=== PATIENT | female | born 1950 | race Caucasian/White ===

== ENCOUNTER → 2016-03-09 | Outpatient (CLI) | payer BC ==
[~2016-03-09] MED LIST: AML2.5T PO; DOCU-34 PO; ESCI10TA PO; HYDR-3754 PO; IBUP-15 PO; IBUP-788 PO; IRBE300T18 PO; LRT10T PO; METH4TAB; NFLOSA25TA PO; OMEG1CAP58; PRAV40TA2 PO; PROM25TA5 PO; TAMS0.4C2 PO; TRM50T PO; VITA1TAB78
--- NOTE | 2016-03-09 11:49 | Diagnostic Imaging Report ---
INDICATION: Renal calculi. COMPARISON: CT abdomen and pelvis of 02/08/2016. FINDINGS: A right double-J ureteral stent is in place with the proximal portion coiled in the region of the right renal hilum and distal portion in the region of the urinary bladder. There is a 4 mm mineralized focus along the lateral margin of the distal aspect of the double-J ureteral stent which could represent a ureteral calculus. Alternatively, this could represent a pelvic phlebolith. No evidence of mineralized renal calculi. Cholecystectomy. Nonobstructive bowel gas pattern. Metallic coils from abdominal wall mesh. IMPRESSION: Right double-J ureteral stent with a 4 mm calculus along its distal margin. This likely represents a calcified pelvic phlebolith; however, a distal ureteral stone cannot be excluded on this examination. If it will alter patient management, then CT without contrast could be performed. Dictated by: Dictated on workstation # [id number]
== END ==
LOC: RAD 10:45
PROVIDERS: ATTEND Urology
DX: N20.0 Calculus of kidney (principal); N20.1 Calculus of ureter; Z96.0 Presence of urogenital implants
CPT/HCPCS: 74000

== ENCOUNTER 2016-03-21 10:53 | Day surgery (SDC) | payer BC ==
[~2016-03-21 10:53] MED LIST changes: -AML2.5T PO; -DOCU-34 PO; -ESCI10TA PO; -HYDR-3754 PO; -IBUP-15 PO; -IBUP-788 PO; -IRBE300T18 PO; +LACTATED RINGERS 1,000 ML IV SCH; +LEVOFLOXACIN 500 MG TAB (LEVAQUIN) PO SCH; -LRT10T PO; -METH4TAB; -NFLOSA25TA PO; -OMEG1CAP58; -PRAV40TA2 PO; -PROM25TA5 PO; +SODIUM CHLORIDE FLUSH 3 ML SYR IV PRN; -TAMS0.4C2 PO; -TRM50T PO; -VITA1TAB78
[2016-03-21] MEDS ORDERED: LIDOCAINE 2% (XYLOCAINE) 10 ML UROJECT MM ONE (12:19)
[2016-03-21 12:30] VITALS: BP 122/52
[2016-03-21 12:58] VITALS: BP 137/69
== END 2016-03-21 13:09 | disposition home or self-care (01) ==
LOC: ASC 10:53
PROVIDERS: ATTEND Urology
DX: Z46.6 Encounter for fitting and adjustment of urinary device (principal); Z87.442 Personal history of urinary calculi; I10 Essential (primary) hypertension